=== PATIENT | male | born 1980 | race Two or more races ===

== ENCOUNTER 2022-08-17 17:20 | Inpatient (IN) | payer OTHER ==
[~2022-08-17] VITALS: Ht 152.4 cm; Wt 90.7 kg
--- NOTE | 2022-08-17 17:35 | NUR ---
PACIENTE ALERTA Y ORIENTADO X3. HX DE DIVERTICULOS. 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 DOLOR A LA PALPACION. NIEGA NAUSEAS O VOMITOS
--- NOTE | 2022-08-17 18:03 | NUR ---
PTE ALERTA,ESTABLE Y ORIENTADO.SE EDUCA SOBRE EL TRATAMIENTO QUE RECIBIRA EN EL HOSPITAL Y CONCHIS REFIERE ENTENDER
--- NOTE | 2022-08-17 23:10 | NUR ---
SE RECIBE PACIENTE DEL TURNO ANTERIOR, EL MISMO SE ENCUENTRA EN PASILLO, SE LE ORIENTA A PACIENTE SOBRE CONTINUIDAD DE TX Y VERBALIZA ENTENDER. PACIENTE CON H/L. PENDIENTE LECTURA DE CT.
--- NOTE | 2022-08-18 06:02 | NUR ---
SE COLECTA MUESTRAS DE LABORATORIO BAJO MEDIDAS ASEPTICAS
--- NOTE | 2022-08-18 07:16 | NUR ---
SE RECIBE PTE ALERTA Y ORIENTADO POR 3 EN TANJA CON BARANDAS ELEVADA Y TIMBRE ACCESIBLE PTE NO PRESENTA DOLOR SE OBSERVA VENOPUNCION PATENTE Y LEDA DE EDEMA PTE SE MANTIENE EN OBSERVACION Y BAJO TRATAMIENTO. PTE EN ESPERA DEL DR MARTINEZ.
== END 2022-08-21 13:45 | disposition home or self-care (01) | DRG 392 ==
LOC: ER 17:20 → SEC-K 08-18 12:31 → MEDJ 08-18 12:31
PROVIDERS: ADMIT Internal Medicine; ATTEND Internal Medicine
PROC: BW21ZZZ Computerized Tomography (CT Scan) of Abdomen and Pelvis (ICD-10-PCS; principal; 2022-08-17)
DX: K52.89 Other specified noninfective gastroenteritis and colitis (principal); Z20.822 Contact with and (suspected) exposure to COVID-19

== ENCOUNTER 2022-12-12 10:49 | Emergency (ER) | payer OTHER ==
[~2022-12-12] VITALS: Ht 167.6 cm; Wt 80.3 kg
== END 2022-12-12 17:06 | disposition home or self-care (01) ==
LOC: ER 10:49
DX: R10.9 Unspecified abdominal pain (principal); R53.81 Other malaise
CPT/HCPCS: 74177; Q9965

== ENCOUNTER 2023-04-29 10:33 | Emergency (ER) | payer OTHER ==
[~2023-04-29] VITALS: Ht 177.8 cm; Wt 81.6 kg
== END 2023-04-29 12:25 | disposition home or self-care (01) ==
LOC: ER 10:33
DX: J03.90 Acute tonsillitis, unspecified (principal)